=== PATIENT | male | born 1960 | race Caucasian/White ===

== ENCOUNTER → 2021-08-06 | Day surgery (SDC) | payer OTHER ==
[~2021-08-06] MED LIST: Etomidate 2 MG/ML 20 ML SDV IVPUSH ONE; Glucagon,Human Recombinant 1 MG Vial IVPUSH ONE; LORazepam 2 MG/ML SDV IVPUSH ONE; Lidocaine 1% 2 ML ONE; Lidocaine 1% 4 ML ONE; Metoclopramide 10 MG/2 ML SDV IVPUSH ONE; Midazolam 1 MG/ML 2 ML SDV ONE; Ondansetron 4 MG/2 ML SDV ONE; Sodium Chloride 0.9% 1,000 ML ONE; Sodium Chloride 0.9% 10 ML Syringe FLUSH PRN; Succinylcholine/Sod PF 100 MG/5 ML SYRINGE IV ONE; fentaNYL 100 MCG/2 ML SDV IVPUSH ONE; fentaNYL 100 MCG/2 ML SDV ONE
--- NOTE | 2021-08-06 14:32 | EDM.PDOC ---
ED HPI GENERAL MEDICAL PROBLEM - General Chief Complaint: ENT Problem Stated Complaint: FB STUCK IN THROAT Time Seen by Provider: 08/06/21 14:23 Source of Information: Reports: Patient, RN Notes Reviewed History Limitations: Reports: No Limitations - History of Present Illness INITIAL COMMENTS - FREE TEXT/NARRATIVE: Patient is a 60-year-old male who presents to the ER for a food impaction bolus. States that he was eating steak roughly 1-1/2 hours ago, and has not been able to eat or drink much after this. States that this is never happened before. He is not having any sort of pain again but he was concerned because he could not eat or drink anything. States he is a relatively healthy individual and has not had any sick-like symptoms fevers or chills, cough or shortness of breath or any severe nausea/vomiting/diarrhea. Throat Pain Score (Numeric/FACES): 6 - Related Data Allergies Allergy/AdvReac Type Severity Reaction Status Date / Time losartan Allergy Renal Verified 08/06/21 14:25 Failure Home Meds: Home Meds Aspirin [Halfprin] 81 mg PO DAILY 05/27/18 [History] Metoprolol Succinate [Toprol Xl] 1 tab PO DAILY 05/27/18 [History] Spironolactone [Aldactone] 1 tab PO DAILY 05/27/18 [History] amLODIPine Besylate [Amlodipine Besylate] 1 tab PO DAILY 05/27/18 [History] Past Medical History HEENT History: Reports: Impaired Vision Cardiovascular History: Reports: Hypertension Musculoskeletal History: Reports: Fracture Social & Family History - Family History Family Medical History: No Pertinent Family History ED ROS ENT - Review of Systems Review Of Systems: Comprehensive ROS is negative, except as noted in HPI. ED EXAM, ENT - Physical Exam Exam: See Below Exam Limited By: No Limitations General Appearance: Alert, WD/WN, No Apparent Distress Mouth/Throat: Normal Inspection, Normal Gums, Normal Lips, Normal Oropharynx, Normal Teeth Respiratory/Chest: No Respiratory Distress, Lungs Clear, Normal Breath Sounds, No Accessory Muscle Use, Chest Non-Tender Cardiovascular: Normal Peripheral Pulses, Regular Rate, Rhythm, No Edema Extremities: Normal Inspection, Normal Capillary Refill Neurological: Alert, Oriented, Normal Cognition, No Motor/Sensory Deficits Psychiatric: Normal Affect, Normal Mood Skin: Warm, Dry, Intact, Normal Color, No Rash Course - Vital Signs Last Recorded V/S: Last Vital Signs Temp 98.6 F 08/06/21 14:23 Pulse 86 08/06/21 14:23 Resp 18 08/06/21 14:23 BP 146/88 H 08/06/21 14:23 Pulse Ox 99 08/06/21 14:23 - Orders/Labs/Meds Orders: Active Orders 24 hr Category Date Time Status Peripheral IV Care [RC] . DIRECTED Care 08/06/21 14:26 Ordered Sodium Chloride 0.9% [Saline Flush] Med 08/06/21 14:25 Active 10 ml FLUSH ASDIRECTED PRN Peripheral IV Insertion Adult [OM.PC] Routine Oth 08/06/21 14:26 Ordered Medication Orders Sodium Chloride (Sodium Chloride 0.9% 10 Ml Syringe) 10 ml FLUSH ASDIRECTED PRN PRN Reason: Keep Vein Open Last Admin: 08/06/21 14:37 Dose: 10 ml Documented by: MACIEL Labs: Laboratory Tests 08/06/21 Range/Units 14:25 Influenza Type A RNA Negative (NEGATIVE) Influenza Type B RNA Negative (NEGATIVE) SARS-CoV-2 RNA (RAMANA) Negative (NEGATIVE) Meds: Medications Generic Name Dose Route Start Last Admin Trade Name Freq PRN Reason Stop Dose Admin Sodium Chloride 10 ml 08/06/21 14:25 08/06/21 14:37 Sodium Chloride 0.9% 10 Ml Syringe FLUSH 10 ml ASDIRECTED PRN Administration Keep Vein Open Discontinued Medications Generic Name Dose Route Start Last Admin Trade Name Freq PRN Reason Stop Dose Admin Fentanyl 50 mcg 08/06/21 14:25 08/06/21 14:34 Fentanyl 100 Mcg/2 Ml Sdv IVPUSH 08/06/21 14:26 50 mcg ONETIME ONE Administration Glucagon 1 mg 08/06/21 14:25 08/06/21 14:36 Glucagon,Human Recombinant 1 Mg Vial IVPUSH 08/06/21 14:26 1 mg ONETIME ONE Administration Lorazepam 1 mg 08/06/21 15:18 08/06/21 15:29 Lorazepam 2 Mg/Ml Sdv IVPUSH 08/06/21 15:19 1 mg ONETIME ONE Administration Metoclopramide HCl 10 mg 08/06/21 14:25 08/06/21 14:34 Metoclopramide 10 Mg/2 Ml Sdv IVPUSH 08/06/21 14:26 10 mg ONETIME ONE Administration - Re-Assessments/Exams Free Text/Narrative Re-Assessment/Exam: 08/06/21 14:32 Patient presents to the ER for food impaction bolus, have ordered some IV meds t o be given for initial management. Nursing staff did collect a Covid swab at the time of triage in case the gentleman needs to go to surgery for removal. 08/06/21 15:07 The patient was reassessed at bedside, and given some carbonated fluids to drink however he was not able to swallow this down. I did call Dr. Prieto for ongoing management of the patient's status and he did state he would evaluate the patient, but noted it would be a couple hours. 08/06/21 16:34 Patient's Covid/flu screen was negative for today's purposes. 1 mg Ativan was ordered for the patient due to him having to wait for surgical management time. Departure - Departure Time of Disposition: 15:08 Disposition: DC/Tfer to [facility] Condition: Good Clinical Impression: Food impaction of esophagus Qualifiers: Encounter type: initial encounter Qualified Code(s): T18.128A - Food in esophagus causing other injury, initial encounter - Discharge Information Referrals: PCP,Unknown [Primary Care Provider] - Forms: ED Department Discharge Sepsis Event Note (ED) - Evaluation Sepsis Screening Result: No Definite Risk - Focused Exam Vital Signs: Vital Signs Temp Pulse Resp BP Pulse Ox 08/06/21 14:23 98.6 F 86 18 146/88 H 99 - My Orders Last 24 Hours: My Active Orders 08/06/21 14:25 Sodium Chloride 0.9% [Saline Flush] 10 ml FLUSH ASDIRECTED PRN 08/06/21 14:26 Peripheral IV Care [RC] . DIRECTED Peripheral IV Insertion Adult [OM.PC] Routine - Assessment/Plan Last 24 Hours: My Active Orders 08/06/21 14:25 Sodium Chloride 0.9% [Saline Flush] 10 ml FLUSH ASDIRECTED PRN 08/06/21 14:26 Peripheral IV Care [RC] . DIRECTED Peripheral IV Insertion Adult [OM.PC] Routine
[2021-08-06 15:12] LABS: CORONAVIRUS COVID-19 NAA NEGATIVE (NEGATIVE)
--- NOTE | 2021-08-06 18:09 | PCM.CONS ---
H&P History of Present Illness - General Date of Service: 08/06/21 Admit Problem/Dx: Admission Diagnosis/Problem Admission Diagnosis/Problem Foreign body in esophagus Source of Information: Patient History Limitations: Reports: No Limitations - History of Present Illness Initial Comments - Free Text/Narative: The patient was eating today and has a piece of steak get stuck in his esophagus. He could no longer swallow anything after this. The event happened this afternoon after 1PM. He is otherwise comfortable and has no pain. He presented to the ER where he was evaluated and glucagon did not help therefore surgical consultation was obtained. He denies any prior history of reflux or heartburn. He denies any dysphagia in the past. He smokes 1PPD but denies any lung problems. He has HTN and takes Amlodipine, Spironolactone and metoprolol. Also takes daily 81mg ASA. No cardiopulmonary problems. Onset of Symptoms: Reports: Today, Sudden Duration of Symptoms: Reports: Hour(s): (5), Constant Location: Reports: Other (esophagus) Quality: Reports: Other Severity: Mild Improves with: Reports: None Worsens with: Reports: None Associated Symptoms: Reports: Other (swallowig problem) Throat Pain Score (Numeric/FACES): 6 - Related Data Allergies/Adverse Reactions: Allergies Allergy/AdvReac Type Severity Reaction Status Date / Time losartan Allergy Renal Verified 08/06/21 14:25 Failure Home Medications: Home Meds Aspirin [Halfprin] 81 mg PO DAILY 05/27/18 [History] Metoprolol Succinate [Toprol Xl] 1 tab PO DAILY 05/27/18 [History] Spironolactone [Aldactone] 1 tab PO DAILY 05/27/18 [History] amLODIPine Besylate [Amlodipine Besylate] 1 tab PO DAILY 05/27/18 [History] Past Medical History - Past Health History Medical/Surgical History: Denies Medical/Surgical History HEENT History: Reports: Impaired Vision Cardiovascular History: Reports: Hypertension Musculoskeletal History: Reports: Fracture Social & Family History - Family History Family Medical History: No Pertinent Family History H&P Review of Systems - Review of Systems: Review Of Systems: See Below General: Reports: No Symptoms HEENT: Reports: No Symptoms Pulmonary: Reports: No Symptoms Cardiovascular: Reports: No Symptoms Gastrointestinal: Reports: No Symptoms Genitourinary: Reports: No Symptoms Musculoskeletal: Reports: No Symptoms Skin: Reports: No Symptoms Psychiatric: Reports: No Symptoms Exam - Exam Exam: See Below - Vital Signs Vital Signs: Last Vital Signs Temp 98.6 F 08/06/21 14:23 Pulse 86 08/06/21 14:23 Resp 18 08/06/21 14:23 BP 146/88 H 08/06/21 14:23 Pulse Ox 99 08/06/21 14:23 - Exam General: Alert, Oriented, Cooperative Lungs: Clear to Auscultation, Normal Respiratory Effort Cardiovascular: Regular Rate, Regular Rhythm, Normal S1, Normal S2, Systolic Murmur (grade 2) GI/Abdominal Exam: Soft, Non-Tender, No Organomegaly, No Distention - Patient Data Lab Results Last 24 hrs: Laboratory Results - last 24 hr 08/06/21 Range/Units 14:25 Influenza Type A RNA Negative (NEGATIVE) Influenza Type B RNA Negative (NEGATIVE) SARS-CoV-2 RNA (RAMANA) Negative (NEGATIVE) Sepsis Event Note - Evaluation Sepsis Screening Result: No Definite Risk - Focused Exam Vital Signs: Vital Signs Temp Pulse Resp BP Pulse Ox 08/06/21 14:23 98.6 F 86 18 146/88 H 99 Consult PN Assessment/Plan Procedures: Procedures ASSAY OF FERRITIN (02/04/20) ASSAY THYROID STIM HORMONE (02/15/21) BL SMEAR W/DIFF WBC COUNT (02/04/20) C-REACTIVE PROTEIN (05/06/18) CHEST X-RAY 2VW FRONTAL&LATL (08/22/16) COMPLETE CBC AUTOMATED (08/09/20) COMPLETE CBC W/AUTO DIFF WBC (02/15/21) COMPREHEN METABOLIC PANEL (08/09/20) DESTRUCT PREMALG LES 2-14 (03/09/21) DESTRUCT PREMALG LESION (03/09/21) EMERGENCY DEPT VISIT (05/27/18) GLYCOSYLATED HEMOGLOBIN TEST (02/15/21) JAK2 GENE (07/16/19) LIPID PANEL (02/15/21) METABOLIC PANEL TOTAL CA (05/06/18) PUNCH BX SKIN SINGLE LESION (03/09/21) RBC SED RATE AUTOMATED (02/04/20) ROUTINE VENIPUNCTURE (02/15/21) TTE W/DOPPLER COMPLETE (09/13/16) URINALYSIS AUTO W/SCOPE (05/06/18) US EXAM ABDO BACK WALL MCINTOSH (09/13/16) VASCULAR STUDY (09/13/16) X-RAY EXAM CHEST 2 VIEWS (05/08/18) Problem List Initiated/Reviewed/Updated: No Plan: Patient has esophageal foreign body which has not resolved despite medical attempts. I recommended we proceed with EGD with FB disimpaction, possible dilation. We discussed risks, benefits and alternatives. Specific risks discussed include bleeding and perforation. Patient agreed to proceed and informed consent was signed. We will proceed with the procedure. Post procedure, if patient is doing well and tolerating clear liquids then he can be discharged back to home.
--- NOTE | 2021-08-06 18:38 | PCM.PREANE ---
Preanesthetic Assessment - Procedure Proposed Procedure: EGD for Food bolus - Anesthesia/Transfusion/Family Hx Anesthesia History: No Prior Anesthesia Family History of Anesthesia Reaction: No Transfusion History: No Prior Transfusion(s) - Review of Systems General: No Symptoms Pulmonary: No Symptoms Cardiovascular: No Symptoms Gastrointestinal: Other (current distress due to food bolus) Neurological: No Symptoms Other: Reports: None - Physical Assessment NPO Status Date: 08/06/21 NPO Status Time: 13:00 Vital Signs: Last Vital Signs Temp 98.6 F 08/06/21 14:23 Pulse 86 08/06/21 14:23 Resp 18 08/06/21 14:23 BP 146/88 H 08/06/21 14:23 Pulse Ox 99 08/06/21 14:23 Height: 1.83 m Weight: 77.111 kg ASA Class: 2E Mental Status: Alert & Oriented x3 Airway Class: Mallampati = 2 Dentition: Reports: Broken Tooth/Teeth, Missing Tooth/Teeth, Caries (extremely poor dentition, most teeth decayed ) Thyro-Mental Finger Breadths: 3 Mouth Opening Finger Breadths: 3 ROM/Head Extension: Full Lungs: Clear to Auscultation, Normal Respiratory Effort Cardiovascular: Regular Rate, Regular Rhythm - Lab Values: Laboratory Last Values Influenza Type A RNA Negative (NEGATIVE) 08/06/21 14:25 Influenza Type B RNA Negative (NEGATIVE) 08/06/21 14:25 SARS-CoV-2 RNA (RAMANA) Negative (NEGATIVE) 08/06/21 14:25 - Allergies Allergies/Adverse Reactions: Allergies Allergy/AdvReac Type Severity Reaction Status Date / Time losartan Allergy Renal Verified 08/06/21 14:25 Failure - Anesthesia Plan Beta Maria Ines: Metoprolol Med Last Dose Date: 08/06/21 Med Last Dose Time: 06:00 - Acknowledgements Anesthesia Type Planned: General Anesthesia Pt an Appropriate Candidate for the Planned Anesthesia: Yes Alternatives and Risks of Anesthesia Discussed w Pt/Guardian: Yes Pt/Guardian Understands and Agrees with Anesthesia Plan: Yes PreAnesthesia Questionnaire - Past Health History Medical/Surgical History: Denies Medical/Surgical History HEENT History: Reports: Impaired Vision Cardiovascular History: Reports: Hypertension Musculoskeletal History: Reports: Fracture - SUBSTANCE USE Tobacco Use Status *Q: Current Every Day Tobacco User (1/2 ppd) - HOME MEDS Home Medications: Home Meds Aspirin [Halfprin] 81 mg PO DAILY 05/27/18 [History] Metoprolol Succinate [Toprol Xl] 1 tab PO DAILY 05/27/18 [History] Spironolactone [Aldactone] 1 tab PO DAILY 05/27/18 [History] amLODIPine Besylate [Amlodipine Besylate] 1 tab PO DAILY 05/27/18 [History] - CURRENT (IN HOUSE) MEDS Current Meds: Current Medications Sodium Chloride (Sodium Chloride 0.9% 10 Ml Syringe) 10 ml FLUSH ASDIRECTED PRN PRN Reason: Keep Vein Open Last Admin: 08/06/21 14:37 Dose: 10 ml Documented by: Discontinued Medications Fentanyl (Fentanyl 100 Mcg/2 Ml Sdv) 50 mcg IVPUSH ONETIME ONE Stop: 08/06/21 14:26 Last Admin: 08/06/21 14:34 Dose: 50 mcg Documented by: Glucagon (Glucagon,Human Recombinant 1 Mg Vial) 1 mg IVPUSH ONETIME ONE Stop: 08/06/21 14:26 Last Admin: 08/06/21 14:36 Dose: 1 mg Documented by: Lorazepam (Lorazepam 2 Mg/Ml Sdv) 1 mg IVPUSH ONETIME ONE Stop: 08/06/21 15:19 Last Admin: 08/06/21 15:29 Dose: 1 mg Documented by: Metoclopramide HCl (Metoclopramide 10 Mg/2 Ml Sdv) 10 mg IVPUSH ONETIME ONE Stop: 08/06/21 14:26 Last Admin: 08/06/21 14:34 Dose: 10 mg Documented by:
--- NOTE | 2021-08-06 19:47 | PCM.POSTAN ---
POST ANESTHESIA ASSESSMENT - MENTAL STATUS Mental Status: Alert, Oriented - VITAL SIGNS Vital Signs: Last Vital Signs Temp 97.5 F 08/06/21 19:35 Pulse 90 08/06/21 19:35 Resp 20 08/06/21 19:43 BP 143/91 H 08/06/21 19:35 Pulse Ox 95 08/06/21 19:43 - RESPIRATORY Respiratory Status: Respiratory Rate WNL, Airway Patent, O2 Saturation Stable - CARDIOVASCULAR CV Status: Pulse Rate WNL, Blood Pressure Stable - GASTROINTESTINAL GI Status: No Symptoms - PAIN Pain Score: 0 - POST OP HYDRATION Hydration Status: Adequate & Stable
[2021-08-06 19:54] VITALS: BP 141/81
--- NOTE | 2021-08-06 20:03 | PCM48HPAN ---
Post Anesthesia Note - EVALUATION WITHIN 48HRS OF ANESTHETIC Vital Signs in Normal Range: Yes Patient Participated in Evaluation: Yes Respiratory Function Stable: Yes Airway Patent: Yes Cardiovascular Function Stable: Yes Hydration Status Stable: Yes Pain Control Satisfactory: Yes Nausea and Vomiting Control Satisfactory: Yes Mental Status Recovered: Yes Vital Signs: Last Vital Signs Temp 97.5 F 08/06/21 19:50 Pulse 81 08/06/21 19:50 Resp 17 08/06/21 19:50 BP 141/81 H 08/06/21 19:50 Pulse Ox 91 L 08/06/21 19:50 - COMMENTS/OBSERVATIONS Free Text/Narrative:: Preparing for discharge home
--- NOTE | 2021-08-06 20:13 | PROC ---
DATE OF OPERATION: 08/06/2021 SURGEON: Richard Prieto MD PREOPERATIVE DIAGNOSIS: Esophageal foreign body. POSTOPERATIVE DIAGNOSIS: Esophageal foreign body. OPERATION PERFORMED: Esophagogastroduodenoscopy with esophageal foreign body disimpaction. ESTIMATED BLOOD LOSS: Minimal. COMPLICATIONS: None. ANESTHESIA: General endotracheal anesthesia. INDICATIONS AND CONSENT: The patient is a 60-year-old male with hypertension who presented today after having a piece of food stuck in his esophagus while eating. This was a steak. The patient was unable to swallow anything after the food was stuck in his esophagus. He presented to the emergency room 1-1/2 hour after the event where trial of medical disimpaction failed; therefore, surgical disimpaction was indicated. I was asked to see the patient and I saw the patient. We discussed risks, benefits, and alternatives, and informed consent was signed. DESCRIPTION OF PROCEDURE: The patient was taken to the procedure room, placed in supine position. General endotracheal anesthesia was induced and the patient's position was turned to left lateral decubitus. Time-out was performed and we began the procedure by placing a therapeutic scope down through the mouth. We found a foreign body at 33 cm from incisors. This appeared to be consistent with a piece of food. A 3- pronged forceps was placed and the foreign body was grasped and removed in 1 attempt. Then, the scope was reinserted back and the esophagus was examined and appeared to be wide open without any focal areas of stricture. The Z-line was at 42 cm. We entered the stomach. Stomach had significant amount of food residue. We were able to traverse that and antrum, 1st and 2nd portion of duodenum were visualized and appeared normal. Retroflexion was also normal. Went back to the esophagus. Because of the nonspecific esophageal findings, we elected to biopsy the distal, mid and proximal esophagus for pathologic exam. Biopsies were taken with cold forceps. EBL was minimal. Once this was done, the stomach was suctioned of air and procedure concluded. The patient will have a trial of p.o. intake postprocedure, and if the patient tolerates that, the patient can return home today and followup in clinic in 2 weeks to discuss pathology results. MMODAL /[id number] [facility]ENTERMerle
[2021-08-06 21:04] VITALS: PULSE 78
== END | disposition home or self-care (01) ==
LOC: JD.ED 14:13 → JD.SDS 18:10
PROVIDERS: ATTEND Surgery
DX: K22.10 Ulcer of esophagus without bleeding (principal); T18.128A Food in esophagus causing other injury, initial encounter; I10 Essential (primary) hypertension; Z88.8 Allergy status to other drugs, medicaments and biological substances; Z79.82 Long term (current) use of aspirin; Z79.899 Other long term (current) drug therapy; Z01.812 Encounter for preprocedural laboratory examination; Z20.822 Contact with and (suspected) exposure to COVID-19
CPT/HCPCS: 0240U; 43239; 43247; 96374; 96375; 99284; J0330; J1610; J2060; J2250; J2405; J2765; J3010; J3490; J7030; 00731; 99140

== ENCOUNTER 2024-06-13 15:31 | Emergency (ER) | payer OTHER ==
[2024-06-13 16:52] LABS: BASOPHILS ABSOLUTE AUTO 0.1 K/mm3 (0.0-0.2); BASOPHILS PERCENT AUTO 0.4 % (0.0-1.0); EOSINOPHILS ABSOLUTE AUTO 0.2 K/mm3 (0.0-0.4); EOSINOPHILS PERCENT AUTO 1.3 % (0.0-6.0); HEMATOCRIT 45.7 % (42.0-52.0); HEMOGLOBIN 15.7 gm/dl (14.0-18.0); IMMATURE GRAN ABSOLUTE AUTO 0.09 K/mm3 (0.00-0.05); IMMATURE GRAN PERCENT AUTO 0.6 % (0.0-0.4); LYMPHOCYTES ABSOLUTE AUTO 1.5 K/mm3 (1.0-4.8); LYMPHOCYTES PERCENT AUTO 10.1 % (24.0-44.0); MEAN CORPUSCULAR HEMOGLOBIN 30.3 pg (28.0-32.0); MEAN CORPUSCULAR HGB CONC 34.4 g/dl (32.0-36.0); MEAN CORPUSCULAR VOLUME 88.2 fl (83.0-99.0); MEAN PLATELET VOLUME 9.2 fl (9.4-12.4); MONOCYTES ABSOLUTE AUTO 1.3 K/mm3 (0.0-0.8); MONOCYTES PERCENT AUTO 8.8 % (0.0-8.0); NEUTROPHILS ABSOLUTE AUTO 11.3 K/mm3 (1.8-7.7); NEUTROPHILS PERCENT AUTO 78.8 % (41.0-71.0); PLATELET COUNT,PLT 332 K/mm3 (150-400); RED BLOOD CELL COUNT 5.18 M/mm3 (4.52-5.90); WHITE BLOOD CELL COUNT,WBC 14.39 K/mm3 (3.9-11.3)
[2024-06-13 17:15] LABS: A/G RATIO 0.6 (1-2); ALBUMIN 2.4 g/dl (3.4-5.0); ANION GAP 15.8 (5-15); BILIRUBIN TOTAL 0.3 mg/dL (0.2-1.0); BUN/CREATININE RATIO 12.5 (14-18); C-REACTIVE PROTEIN 9.37 mg/dL (<0.30); CALCIUM 8.6 mg/dL (8.5-10.1); CREATININE 0.8 mg/dL (0.7-1.3); EST CRCL DRUG DOSING (CG) 102.53 mL/min; POTASSIUM,K 2.8 mEq/L (3.5-5.1); PROTEIN TOTAL,TP 6.2 g/dl (6.4-8.2)
[2024-06-13 17:29] LABS: CORONAVIRUS COVID-19 NAA NEGATIVE (NEGATIVE); INFLUENZA A NAA NEGATIVE (NEGATIVE); RESPIRATORY SYNCYTIAL VIR NAA NEGATIVE (NEGATIVE)
[2024-06-13 17:32] LABS: INR 1.1; PROTHROMBIN TIME 11.6 SECONDS (9.7-12.0)
[2024-06-13] MEDS: Acetaminophen 325 MG Tab PO ONE (18:52)
[2024-06-13 19:25] VITALS: BP 145/84; PULSE 85
== END 2024-06-13 19:25 | disposition home or self-care (01) ==
LOC: JD.ED 15:31
DX: K52.9 Noninfective gastroenteritis and colitis, unspecified (principal); I10 Essential (primary) hypertension; Z79.82 Long term (current) use of aspirin; Z79.899 Other long term (current) drug therapy; Z88.8 Allergy status to other drugs, medicaments and biological substances
CPT/HCPCS: 0241U; 36415; 80053; 85025; 85610; 86140; 99284; A9270

== ENCOUNTER 2024-07-19 08:17 | Emergency (ER) | payer OTHER ==
[2024-07-19] MEDS: Sodium Chloride 0.9% 1,000 ML IV SCH (08:54)
[2024-07-19] MEDS: Dexamethasone 4 MG/ML SDV IVPUSH ONE (08:55)
[2024-07-19 09:13] VITALS: PULSE 89
[2024-07-19 10:08] VITALS: BP 142/78
== END 2024-07-19 10:00 ==
LOC: JD.ED 08:17
DX: J02.9 Acute pharyngitis, unspecified (principal); E86.0 Dehydration; I10 Essential (primary) hypertension; F17.210 Nicotine dependence, cigarettes, uncomplicated; Z88.8 Allergy status to other drugs, medicaments and biological substances; Z79.82 Long term (current) use of aspirin; Z79.899 Other long term (current) drug therapy
CPT/HCPCS: 87651; 96361; 96374; 99283; J1100; J7030

== ENCOUNTER 2024-10-18 08:11 | Emergency (ER) | payer OTHER ==
[2024-10-18 08:55] VITALS: BP 121/73; PULSE 86
[2024-10-18] MEDS: Albuterol/Ipratropium 3.0-0.5 MG/3 ML Neb Soln NEB ONE (10:23)
[2024-10-18] MEDS: Sodium Chloride 0.9% 1,000 ML IV ONE (10:42)
[2024-10-18] MEDS: Ketorolac 30 MG/ML SDV IVPUSH ONE (10:42)
[2024-10-18 11:03] LABS: BASOPHILS PERCENT AUTO 0.6 % (0.0-1.0); EOSINOPHILS PERCENT AUTO 0.1 % (0.0-6.0); IMMATURE GRAN ABSOLUTE AUTO 0.05 K/mm3 (0.00-0.05); IMMATURE GRAN PERCENT AUTO 0.7 % (0.0-0.4); LYMPHOCYTES ABSOLUTE AUTO 1.2 K/mm3 (1.0-4.8); LYMPHOCYTES PERCENT AUTO 15.9 % (24.0-44.0); MEAN CORPUSCULAR HEMOGLOBIN 29.6 pg (28.0-32.0); MEAN CORPUSCULAR HGB CONC 33.3 g/dl (32.0-36.0); MEAN CORPUSCULAR VOLUME 88.9 fl (83.0-99.0); MEAN PLATELET VOLUME 9.9 fl (9.4-12.4); MONOCYTES ABSOLUTE AUTO 1.1 K/mm3 (0.0-0.8); MONOCYTES PERCENT AUTO 15.2 % (0.0-8.0); NEUTROPHILS ABSOLUTE AUTO 4.9 K/mm3 (1.8-7.7); NEUTROPHILS PERCENT AUTO 67.5 % (41.0-71.0); RED BLOOD CELL COUNT 5.85 M/mm3 (4.52-5.90); WHITE BLOOD CELL COUNT,WBC 7.25 K/mm3 (3.9-11.3)
[2024-10-18 11:04] LABS: HEMOGLOBIN 17.3 gm/dl (14.0-18.0); PLATELET COUNT,PLT 302 K/mm3 (150-400)
[2024-10-18 11:20] LABS: A/G RATIO 0.7 (1-2); ALBUMIN 3.3 g/dl (3.4-5.0); ANION GAP 14.9 (5-15); BILIRUBIN TOTAL 0.3 mg/dL (0.2-1.0); BUN/CREATININE RATIO 9.2 (14-18); CALCIUM 9.6 mg/dL (8.5-10.1); CREATININE 1.2 mg/dL (0.7-1.3); EST CRCL DRUG DOSING (CG) 65.95 mL/min; POTASSIUM,K 3.9 mEq/L (3.5-5.1); PROTEIN TOTAL,TP 8.2 g/dl (6.4-8.2)
[2024-10-18] MEDS: predniSONE 20 MG Tab PO ONE (12:24)
[2024-10-18] MEDS: Sodium Chloride 1 GM Tab PO ONE (12:30)
== END 2024-10-18 12:40 | disposition home or self-care (01) ==
LOC: JD.ED 08:11
DX: J45.901 Unspecified asthma with (acute) exacerbation (principal); I10 Essential (primary) hypertension; Z88.8 Allergy status to other drugs, medicaments and biological substances; Z79.51 Long term (current) use of inhaled steroids; Z79.82 Long term (current) use of aspirin; Z79.899 Other long term (current) drug therapy
CPT/HCPCS: 36415; 71046; 80053; 83605; 84484; 85025; 87428; 94640; 96361; 96374; 99284; A9270; J1885; J7030; J7512; J7620